=== PATIENT | female | born 1960 | race Caucasian/White ===

== ENCOUNTER → 2016-03-10 | Outpatient (CLI) | payer OTHER ==
[~2016-03-10] MED LIST: ACET650S13 RC; ALPR.25T PO; AMLO2.5T; AMLO5TAB2 GT; AMLO5TAB2 PO; ASPI1TAB; ASPI1TAB PO; ATOR40TA PO; FLUR100T; GBPN300C PO; LEVO75TA57 PO; LISI20TA; LISI40TA PO; LVT.1T; METO-272 PO; METO100T5; OMEG-12 PO; OMEP40CA36 PO; ONDA8TAB6; PANT40TA; PARO20TA57 PO; PEG15DRO4 OS; POLY17PO23 PO; PRAV40TA PO; THYROXINE; TOPI100T2 PO; TRAM-21 PO
--- OUTSIDE RECORDS SUMMARY | 2016-03-10 13:45 | XMS REPORT | Continuity of Care Document ---
Author Author [facility] Organization [facility] Address Unknown Phone Unavailable Care Team Providers Care Shelf Stocker Name Role Phone Valentin Cordoba PCP [phone] Source Comments Some departments are not documenting in the electronic medical record. If you do not see the information that you expected, contact Release of Information in the Health Information Management department at [phone] for further assistance in locating additional records.[facility] Active Allergies and Adverse Reactions Allergen Noted Date Severity Reactions Comments Ambien 07/13/2009 Medium MENTAL STATUS CHANGES Codeine 07/13/2009 Medium VOMITING Morphine 08/03/2009 NAUSEA AND VOMITING Current Medications Prescription Sig. Disp. Refills Start End Date Status Date ACETAMINOPHEN/CAFFEINE Take 2 Tabs by mouth Active (EXCEDRIN PO) Twice Daily. POLYETHYLENE GLYCOL 3350 Take 1 Dose by mouth As Active (MIRALAX PO) Needed. lisinopril (PRINIVIL; Take 20 mg by mouth Twice Active ZESTRIL) 20 mg tablet Daily. paroxetine (PAXIL) 20 mg Take 20 mg by mouth Active tablet Daily. clonidine (CATAPRESS) 0.1 Take 0.1 mg by mouth As Active mg tablet Needed. alprazolam (XANAX) 0.25 Take 0.25 mg by mouth Active mg tablet Every [address],+, Take 40 mg by mouth Active (PROTONIX) 40 mg tablet Daily. fesoterodine,+, XL Take 4 mg by mouth Daily. Active (TOVIAZ) 4 mg Tb24 tablet levothyroxine Take 100 mcg by mouth Active (LEVOTHROID) 100 mcg Daily. tablet petrolatum PF (REFRESH Apply 0.25 Inches to Active P.M.) ophthalmic ointment affected area Every 12 Hours. oxycodone/acetaminophen Take 1-2 Tabs by mouth 60 Tab 0 08/26/19 Active (PERCOCET) 5/325 mg Every 4-6 Hours as needed 10 tablet for Pain. senna/docusate Take 1 Tab by mouth Twice 20 Tab 1 08/26/19 Active (SENOKOT-S) 8.6/50 mg Daily. 10 tablet Active Problems Problem Noted Date Adenoma 08/30/2009 Metastasis to liver (HCC) 07/13/2009 Overview: Ms. Eller is a pleasant 48 year old woman who said to have had on ultrasound (06/09/2008) at the time of her original colectomy, a small hyperechoic lesion in the right lobe measuring 1.6 x 1.6 x 1.[address] done on 11/20/2008, the lesion was reported to have been 1.7 cm in diameter; by 05/26/2009 the lesion had grown to 2.0 cm in diameter. She was treated with FOLFOX 6 and Avastin for three cycles; due to hypertension, she was next treated with XELOX for three cycles, last treatment on 02/28/2009. CEA was 1.1 on 06/27/2009. PET done on 06/21/2009 showed that the metabolic activity of the lesion had increased compared to the study of 03/05/2009. L ast Assessment & Plan: Ms. Eller is a 48 year old woman with a history of a right lobe liver lesion, thought to be metastatic colorectal cancer and treated with preoperative chemotherapy, who on 08/14/2009 underwent an exploratory laparotomy, intraoperative ultrasound, portal lymphadenectomy, open cholecystectomy, resection of a 2 cm hemorrhagic pelvic cyst, partial splenectomy, Oxford's procedure with appendectomy, a 6 cm wedge resection of the right lobe of the liver, and an incisional hernia repair. She had a complicated post-operative stay due to partial small bowel obstruction and a urinary tract infection. Interestingly, all of the resected lesions, even the one in her liver, were benign. Although at the time of surgery, I felt that her malrotation was congenital, old CT scans confirm that the malrotation was a consequence of her right nephrectomy. I have reviewed her PET scans with our main nuclear medicine radiologist and he found a much lower activity of the lesion than what was reported on the scans we were given; but he does not know why an adenoma would uptake the tracer more than normal liver tissue. Since her discharge, she has been feeling very tired, still. She still has abdominal discomfort, when she walks. But she is eating much better and has taste. Malrotation, congenital 07/13/2009 Overview: She states she has alternating diarrhea and constipation that occasionally cause cramps but denies abd pain other than that. She complains of having decreased energy. 2 weeks ago she was hospitalized with acute N/V and hypotension. She recovered with IVF and is unsure of her diagnosis. CEA on that day was 1.1. LFTs were mildly elevated. Report of CT done today: MARKED NARROWING OF THE PROXIMAL THIRD PORTION OF THE DUODENUM WITH ABNORMAL RIGHT-SIDED LOCATION OF THE JEJUNUM. THIS RESULTS IN PARTIAL HIGH-GRADE OBSTRUCTION WHICH IS LIKELY CHRONIC IN NATURE. THIS IS LIKELY MOST LIKELY CONGENITAL DUE TO MALROTATION AND MIDGUT VOLVULUS. Renal cancer (HCC) 06/05/2008 Overview: Her right kidney was removed with a radical resection at the same time of her colonic primary. The lesion was in the lower pole, 5.3 x 4.7 x 5 cm; it was limited to the kidney and was a clear cell renal carcinoma, Raul grade 2-p2T1b. Venous invasion was present. No nodes taken. 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 Eller is a 48 year old woman with a history of hematochezia for four years. She was told by her hot stamp operator that the bleeding was due to hemorrhoids. However, the bleeding worsen and she was evaluated with an abdominal sonogram and CT scan. She was found to have a large right renal mass. She subsequently had a colonoscopy which demonstrated a rectosigmoid dysplastic polyp. She under sigmoidectomy on 06/05/2008. The cancer was adenocarcinoma, low-grade, with lymphatic but not venous or perineural invasion. 22 nodes were removed and 5 were involved with cancer. Social History Tobacco Use Types Packs/Day Years Used Date Never Smoker Alcohol Use Drinks/Week oz/Week Comments No Last Filed Vital Signs Vital Sign Reading Time Taken Blood Pressure 125/89 09/07/2009 10:20 AM CDT Pulse 94 09/07/2009 10:20 AM CDT Temperature 37.4 C (99.4 F) 09/07/2009 10:20 AM CDT Respiratory Rate 20 10/28/2007 2:57 AM CDT Height 1.575 m (5' 2") 09/07/2009 10:20 AM CDT Weight 61.236 kg (135 lb) 05/18/2015 10:02 AM CDT Body Mass Index 24.69 05/18/2015 10:02 AM CDT Oxygen Saturation 97% 09/07/2009 10:20 AM CDT Plan of Care Health Maintenance Due Date Last Done Comments Hepatitis C Screening 1960 Physical (Comprehensive) 1965 Exam Pertussis Vaccine 1969 Tetanus Vaccine 11/16/1975 Cervical Cancer Screening 11/16/1979 Breast Cancer Screening 1998 Colorectal Cancer 2008 Screening Influenza Vaccine 11/01/2015 Results from Last 3 Months Not on file
[2016-03-10 13:53] LABS: BASOPHILS % (AUTO) 0 % (0-10); EOSINOPHILS # (AUTO) 0.1 10^3/uL (0.0-0.3); EOSINOPHILS % (AUTO) 1 % (0-10); LYMPHOCYTES # (AUTO) 2.7 X 10^3 (1.0-4.0); LYMPHOCYTES % (AUTO) 32 % (12-44); MEAN CORPUSCULAR HEMOGLOBIN 32 PG (25-34); MEAN CORPUSCULAR HGB CONC 34 G/DL (32-36); MEAN CORPUSCULAR VOLUME 94 FL (80-99); MEAN PLATELET VOLUME 10.4 FL (7.4-10.4); MONOCYTES # (AUTO) 0.6 X 10^3 (0.0-1.0); MONOCYTES % (AUTO) 7 % (0-12); NEUTROPHILS # (AUTO) 4.9 X 10^3 (1.8-7.8); NEUTROPHILS % (AUTO) 60 % (42-75); PLATELET COUNT 191 10^3/uL (130-400); RED BLOOD COUNT 4.68 10^6/uL (4.35-5.85); RED CELL DISTRIBUTION WIDTH 12.9 % (10.0-14.5); WHITE BLOOD COUNT 8.3 10^3/uL (4.3-11.0)
[2016-03-10 14:16] LABS: ALBUMIN 4.5 G/DL (3.2-4.5); BILIRUBIN,TOTAL 0.6 MG/DL (0.1-1.0); CALCIUM 10.1 MG/DL (8.5-10.1); CREATININE SERUM 1.22 MG/DL (0.60-1.30); POTASSIUM 4.2 MMOL/L (3.6-5.0); TOTAL PROTEIN 6.9 G/DL (6.4-8.2)
[2016-03-10 14:39] LABS: THYROID STIMULATING HORMONE 1.14 UIU/ML (0.35-4.94)
== END ==
LOC: LAB 13:39
PROVIDERS: ATTEND Nurse Practitioner Family
DX: E03.9 Hypothyroidism, unspecified (principal); F41.1 Generalized anxiety disorder; I10 Essential (primary) hypertension; K59.01 Slow transit constipation
CPT/HCPCS: 36415; 80053; 84439; 84443; 85025

== ENCOUNTER → 2016-11-28 | Outpatient (CLI) | payer OTHER ==
[2016-11-28 12:08] LABS: ALBUMIN 4.3 GM/DL (3.2-4.5); BILIRUBIN,TOTAL 0.6 MG/DL (0.1-1.0); CALCIUM 10.3 MG/DL (8.5-10.1); CREATININE SERUM 1.23 MG/DL (0.60-1.30); POTASSIUM 4.8 MMOL/L (3.6-5.0); TOTAL PROTEIN 7.1 GM/DL (6.4-8.2)
== END ==
LOC: LAB 11:36
PROVIDERS: ATTEND Physician Assistant
DX: R07.89 Other chest pain (principal); E78.2 Mixed hyperlipidemia; I10 Essential (primary) hypertension; I47.1 Supraventricular tachycardia
CPT/HCPCS: 36415; 80053; 80061

== ENCOUNTER → 2016-12-12 | Outpatient (CLI) | payer OTHER ==
--- NOTE | 2016-12-15 10:33 | Diagnostic Imaging Report ---
Bilateral screening mammogram 2D views with tomosynthesis The current study was also evaluated with a Computer Aided Detection (CAD) system. INDICATION: Screening. No current complaints stated on the questionnaire. COMPARISON: 09/22/14 FINDINGS: The breasts are composed of heterogeneously dense parenchyma which may decrease mammographic sensitivity. There are benign-appearing calcifications seen. Allowing for technique and positional differences, no suspicious change is seen. IMPRESSION: Dense breasts with no definite change. ACR BI-RADS Category 2: Benign findings. Result letter will be mailed to the patient. Note: At least 10% of breast cancer is not imaged by mammography. Dictated by: Dictated on workstation # [id number]
== END ==
LOC: RAD 13:19
PROVIDERS: ATTEND Family Medicine
DX: Z12.31 Encounter for screening mammogram for malignant neoplasm of breast (principal)
CPT/HCPCS: 77067

== ENCOUNTER → 2017-08-17 | Outpatient (CLI) | payer OTHER ==
[2017-08-17 12:55] LABS: BASOPHILS % (AUTO) 0 % (0-10); EOSINOPHILS # (AUTO) 0.1 10^3/uL (0.0-0.3); EOSINOPHILS % (AUTO) 1 % (0-10); HEMATOCRIT 40 % (35-52); HEMOGLOBIN 14.2 G/DL (11.5-16.0); LYMPHOCYTES # (AUTO) 2.3 X 10^3 (1.0-4.0); LYMPHOCYTES % (AUTO) 31 % (12-44); MEAN CORPUSCULAR HEMOGLOBIN 33 PG (25-34); MEAN CORPUSCULAR HGB CONC 35 G/DL (32-36); MEAN CORPUSCULAR VOLUME 95 FL (80-99); MEAN PLATELET VOLUME 10.1 FL (7.4-10.4); MONOCYTES # (AUTO) 0.6 X 10^3 (0.0-1.0); MONOCYTES % (AUTO) 7 % (0-12); NEUTROPHILS # (AUTO) 4.5 X 10^3 (1.8-7.8); NEUTROPHILS % (AUTO) 60 % (42-75); PLATELET COUNT 197 10^3/uL (130-400); RED BLOOD COUNT 4.26 10^6/uL (4.35-5.85); RED CELL DISTRIBUTION WIDTH 12.8 % (10.0-14.5); WHITE BLOOD COUNT 7.5 10^3/uL (4.3-11.0)
[2017-08-17 13:22] LABS: ALBUMIN 4.3 GM/DL (3.2-4.5); BILIRUBIN,TOTAL 0.7 MG/DL (0.1-1.0); CALCIUM 10.1 MG/DL (8.5-10.1); CREATININE SERUM 1.4 MG/DL (0.60-1.30); POTASSIUM 4.3 MMOL/L (3.6-5.0); TOTAL PROTEIN 6.9 GM/DL (6.4-8.2)
== END ==
LOC: ONC 12:41
PROVIDERS: ATTEND Internal Medicine Hematology & Oncology
DX: Z08 Encounter for follow-up examination after completed treatment for malignant neoplasm (principal); Z85.038 Personal history of other malignant neoplasm of large intestine; Z85.528 Personal history of other malignant neoplasm of kidney; I12.9 Hypertensive chronic kidney disease with stage 1 through stage 4 chronic kidney disease, or unspecified chronic kidney disease; N18.3 Chronic kidney disease, stage 3 (moderate); K59.00 Constipation, unspecified; R19.7 Diarrhea, unspecified; Z90.5 Acquired absence of kidney; Z92.21 Personal history of antineoplastic chemotherapy; Z79.899 Other long term (current) drug therapy
CPT/HCPCS: 36415; 80053; 82378; 83615; 85025; 99213

== ENCOUNTER → 2017-09-07 | Outpatient (CLI) | payer OTHER ==
[~2017-09-07] MED LIST changes: +ALPR0.254 PO; +AMLO10TA2 PO; +ASPI-992 PO; +EZET10TA5 PO; +FLUO20TA28 PO; +GABA-488 PO; +L.AC1CAP6 PO; +LEVO75TA6 PO; +METO-370 PO; +PANT40TA3 PO; +ROSU10TA27 PO
--- NOTE | 2017-09-07 13:03 | Diagnostic Imaging Report ---
PROCEDURE: CT abdomen and pelvis without contrast. TECHNIQUE: Multiple contiguous axial images were obtained through the abdomen and pelvis without the use of intravenous contrast. INDICATION: Renal cell carcinoma, status post right nephrectomy. COMPARISON: Correlation is made with prior CT from 02/16/2013. FINDINGS: Lung bases are clear of acute infiltrates. There is some dependent atelectasis in the right lower lobe. The liver is unremarkable. Gallbladder appears to be surgically absent. Pancreas and spleen appear to be stable. No adrenal mass is detected. Right kidney is surgically absent. Small bowel loops are identified in the right renal fossa. Left kidney is unremarkable. No calculi or hydronephrosis is seen. The aorta is non-aneurysmal. No definite central retroperitoneal or mesenteric lymphadenopathy is seen. Small and large bowel loops are normal caliber. There is no ascites. Bladder is unremarkable. Postsurgical changes of rectum are noted. Bony structures are without osteolytic or blastic lesions. IMPRESSION: Status post right nephrectomy. There is no evidence of recurrent or residual renal mass. There are no findings to suggest metastatic disease. Dictated by: Dictated on workstation # [id number]
== END ==
LOC: RAD 11:46
PROVIDERS: ATTEND Internal Medicine Hematology & Oncology
DX: C18.7 Malignant neoplasm of sigmoid colon (principal); C64.1 Malignant neoplasm of right kidney, except renal pelvis; Z90.5 Acquired absence of kidney
CPT/HCPCS: 74176

== ENCOUNTER 2017-09-16 06:05 | Outpatient (CLI) | payer OTHER ==
[~2017-09-16] VITALS: Ht 157.5 cm; Wt 61.2 kg
[~2017-09-16 06:05] MED LIST changes: -ALPR0.254 PO; -AMLO10TA2 PO; -ASPI-992 PO; -EZET10TA5 PO; -FLUO20TA28 PO; -GABA-488 PO; -L.AC1CAP6 PO; -LEVO75TA6 PO; -METO-370 PO; -PANT40TA3 PO; -ROSU10TA27 PO
[2017-09-16] MEDS ORDERED: EZET10TA5 PO (13:51)
[2017-09-16] MEDS ORDERED: LEVO75TA6 PO (14:07)
[2017-09-16] MEDS ORDERED: ASPI-992 PO (14:07)
[2017-09-16] MEDS ORDERED: AMLO10TA2 PO (14:07)
[2017-09-16] MEDS ORDERED: L.AC1CAP6 PO (14:07)
[2017-09-16] MEDS ORDERED: METO-370 PO (14:07)
[2017-09-16] MEDS ORDERED: GABA-488 PO (14:07)
[2017-09-16] MEDS ORDERED: ALPR0.254 PO (14:07)
[2017-09-16] MEDS ORDERED: LISI40TA PO (14:07)
[2017-09-16] MEDS ORDERED: FLUO20TA28 PO (14:07)
[2017-09-16] MEDS ORDERED: ROSU10TA27 PO (14:07)
[2017-09-16] MEDS ORDERED: PANT40TA3 PO (14:07)
== END 2017-09-16 14:12 ==
LOC: PREOP 06:05
PROVIDERS: ATTEND Surgery
DX: Z01.818 Encounter for other preprocedural examination (principal); R19.7 Diarrhea, unspecified; K59.00 Constipation, unspecified

== ENCOUNTER 2017-09-22 07:29 | Day surgery (SDC) | payer OTHER ==
[~2017-09-22] VITALS: Ht 157.5 cm; Wt 61.2 kg
[~2017-09-22 07:29] MED LIST changes: +ALPR0.254 PO; +AMLO10TA2 PO; +ASPI-992 PO; +EZET10TA5 PO; +FLUO20TA28 PO; +GABA-488 PO; +L.AC1CAP6 PO; +LEVO75TA6 PO; +METO-370 PO; +PANT40TA3 PO; +ROSU10TA27 PO
--- OUTSIDE RECORDS SUMMARY | 2017-09-22 07:32 | XMS REPORT | Clinical Summary ---
Author Author [facility] Organization [facility] Address Unknown Phone Unavailable Care Team Providers Care Road Mixer Operator Name Role Phone Talha Cordoba MD PCP Haider Lewis MD Unavailable Herbert Merrill MD Unavailable Kayleigh Brooks Unavailable Unavailable Sandra Gan MD Unavailable Unavailable Yash Ballesteros MD Unavailable Source Comments Some departments are not documenting in the electronic medical record. If you do not see the information that you expected, contact Release of Information in the Health Information Management department at [phone] for further assistance in locating additional records.[facility] Allergies Active Allergy Reactions Severity Noted Date Comments Zolpidem MENTAL STATUS CHANGES Medium 07/13/2009 Codeine VOMITING Medium 07/13/2009 Morphine NAUSEA AND VOMITING 08/03/2009 Current Medications Prescription Sig. Disp. Refills Start [...] Active mg tablet Every [address]+, Take 40 mg by mouth Active (PROTONIX) [...] 2 cm hemorrhagic pelvic cyst, partial splenectomy, Lansford's procedure with appendectomy, a 6 cm wedge [...] four years. She was told by her bullard machine operator that the bleeding was due to [...] removed and 5 were involved with cancer. Family History Medical History Relation Name Comments Cancer Father renal Hypertension Father Other Father bleeding tendency Cancer Maternal Aunt ovarian Cancer Maternal colon cancer Grandfather Cancer Mother ovarian Heart Disease Mother Cancer Paternal Skin cancers. Uncle Stroke Grandfatrher Relation Name Status Comments Father Cancer, unknown type. (Age 62) Maternal Aunt Maternal Grandfather Mother Heart disease. (Age 72) Paternal Uncle Skin cancers. (Age 80) Social History Tobacco Use Types Packs/Day Years Used Date Never Smoker Alcohol Use Drinks/Week oz/Week Comments No Sex Assigned at Date Recorded Not on file Last Filed Vital Signs Vital Sign Reading Time Taken Blood Pressure 125/89 09/07/2009 10:20 AM CDT Pulse 94 09/07/2009 10:20 AM CDT Temperature 37.4 C (99.4 F) 09/07/2009 10:20 AM CDT Respiratory Rate 20 10/28/2007 2:57 AM CDT Oxygen Saturation 97% 09/07/2009 10:20 AM CDT Inhaled Oxygen - - Concentration Weight 61.2 kg (135 lb) 05/18/2015 10:02 AM CDT Height 157.5 cm (5' 2") 09/07/2009 10:20 AM CDT Body Mass Index 24.69 05/18/2015 10:02 AM CDT Plan of Treatment Health Maintenance Due Date Last Done Comments HEPATITIS C SCREENING 1960 PHYSICAL (COMPREHENSIVE) 1965 EXAM PERTUSSIS VACCINE 1969 HIV SCREENING 1973 TETANUS VACCINE 11/16/1975 CERVICAL CANCER SCREENING 1988 BREAST CANCER SCREENING 1998 COLORECTAL CANCER 2008 SCREENING SHINGLES RECOMBINANT 2008 VACCINE (1 of 2) INFLUENZA VACCINE 11/30/2017 Results Not on filefrom Last 3 Months
[2017-09-22] MEDS ORDERED: LACTATED RINGERS 1,000 ML IV ONE (07:37)
[2017-09-22 07:40] VITALS: BP 94/76
[2017-09-22] MEDS ORDERED: LACTATED RINGERS 0 ML IV ONE (07:51)
[2017-09-22] MEDS ORDERED: LACTATED RINGERS 1,000 ML IV SCH (08:00)
[2017-09-22] MEDS ORDERED: LACTATED RINGERS 1,000 ML IV PRN (08:00)
--- NOTE | 2017-09-22 08:27 | Progress Note-Pre Operative ---
Pre-Operative Progress Note H&P Reviewed The H&P was reviewed, patient examined and no changes noted. Date Seen by Provider: Sep 22, 2017 Time Seen by Provider: : Date H&P Reviewed: Sep 22, 2017 Time H&P Reviewed: : Pre-Operative Diagnosis: change in bowel habits, history sigmoid colon cancer BENTLEY BERMUDEZ DO Sep 22, 2017 08:27
[2017-09-22] MEDS ORDERED: PROPOFOL INJECTION 50 ML IV ONE (08:59)
[2017-09-22] MEDS ORDERED: MIDAZOLAM 2 MG/2 ML (VERSED) VIAL ONE (08:59)
[2017-09-22 10:00] VITALS: BP 93/59
--- NOTE | 2017-09-22 10:05 | Discharge Inst-Simple/Standard ---
Discharge Inst-Standard Patient Instructions/Follow Up Plan of Care/Instructions/FU: 2 weeks Nicolasa Activity as Tolerated: Yes Discharge Diet: Regular Diet BENTLEY BERMUDEZ DO Sep 22, 2017 10:05
--- NOTE | 2017-09-22 10:09 | Progress Note-Post Operative ---
Post-Operative Progess Note Surgeon (s)/Primary Mill Roller (s) Surgeon BENTLEY BERMUDEZ DO Primary Mill Roller: na Pre-Operative Diagnosis change in bowel habits, history sigmoid colon cancer Post-Operative Diagnosis colon polyps Procedure & Operative Findings Date of Procedure 09/22/17 Procedure Performed/Findings colonoscopy with hot bx polypectomy x 3 and snare polypectomy x 1 Anesthesia Type per benefits manager Estimated Blood Loss Estimated blood loss (mL): scant Specimens/Packing Specimens Removed cecal polyp x 2 ascending colon x 1 descending colon x 1 BENTLEY BERMUDEZ DO Sep 22, 2017 10:09
[2017-09-22 10:30] VITALS: BP 104/74
[2017-09-22 10:35] VITALS: BP 104/74
--- NOTE | 2017-09-22 10:49 | Anesthesia-General Post-Op ---
MAC Patient Condition Mental Status/LOC: Same as Preop Cardiovascular: Satisfactory Nausea/Vomiting: Absent Respiratory: Satisfactory Pain: Controlled Complications: Absent Post Op Complications Complications None Follow Up Care/Instructions Patient Instructions None needed. Anesthesiology Discharge Order Discharge Order Patient is doing well, no complaints, stable vital signs, no apparent adverse anesthesia problems. No complications reported per nursing. DREW DAVALOS CRNA Sep 22, 2017 10:49
--- NOTE | 2017-09-22 14:31 | OPERATIVE REPORT ---
DATE OF SERVICE: 09/22/2017 PREOPERATIVE DIAGNOSES: Change in bowel habits, history of sigmoid colon cancer. POSTOPERATIVE DIAGNOSIS: Colon polyps, two in the cecum, one in the ascending and one in the descending colon. PROCEDURE: Colonoscopy with hot biopsy polypectomy x3 and snare polypectomy x1. SURGEON: Bentley Baldwin DO. ANESTHESIA: Per CATERING ATTENDANT. ESTIMATED BLOOD LOSS: Scant. COMPLICATIONS: None. INDICATIONS: The patient is a 56-year-old female with history of colon cancer. She understands risks and benefits of procedure and wished to proceed with procedure. Consent was signed in the chart. DESCRIPTION OF PROCEDURE: The patient was taken to the endoscopy suite, placed in left lower recumbent position. Timeout was performed. Scope was inserted in the rectum. Rectal exam was performed. There were no palpable polyps, mass or ulcerations. The scope was inserted in the rectum and advanced all the way to the cecum with minimal difficulty. There were two small polyps in the cecum, which hot biopsy polypectomies were performed. Scope was continuously retracted back, slightly larger polyp in the ascending colon, which snare polypectomy was performed. Specimen was obtained for pathology. Scope was continued slowly retracted back. There were no polyps, mass or ulcerations within the transverse colon. Within the descending colon, a small polyp was present, which hot biopsy polypectomy was performed. Scope was continued to be slowly retracted back until completely removed back into the rectum where it was also retroflexed noting no other pathology. Scope was returned to its normal position, slowly withdrawn until completely removed. The patient tolerated the procedure well without complication. She was taken to the recovery room in stable condition. RECOMMENDATIONS: Due to the number of polyps and the slightly larger polyp in the ascending colon, we would recommend repeat colonoscopy in three years. If she has any problems prior to that, she should be reevaluated at that time. Job ID: [id number] DocumentID: [id number] Dictated Date: 09/22/2017 10:08:36 Wood Patternmaker Apprentice Date: 09/22/2017 14:31:30 Dictated By: BENTLEY BALDWIN DO
== END 2017-09-22 10:35 | disposition home or self-care (01) ==
LOC: ENDO 07:29
PROVIDERS: ATTEND Surgery
DX: D12.0 Benign neoplasm of cecum (principal); D12.2 Benign neoplasm of ascending colon; D12.4 Benign neoplasm of descending colon; R19.4 Change in bowel habit; Z85.038 Personal history of other malignant neoplasm of large intestine; I10 Essential (primary) hypertension; Z79.82 Long term (current) use of aspirin

== ENCOUNTER → 2018-03-25 | Outpatient (CLI) | payer OTHER ==
[~2018-03-25] MED LIST changes: -AMLO10TA2 PO; +AMLO10TA7 PO
--- NOTE | 2018-03-25 19:52 | Diagnostic Imaging Report ---
INDICATION: Cough. TIME OF EXAM: 2:59 PM Comparison is made with prior exam from 05/26/2009. FINDINGS: The heart size is normal. The pulmonary vascularity is unremarkable. The lungs are clear. No infiltrate, effusion or pneumothorax is detected. IMPRESSION: No acute cardiopulmonary process is detected. Dictated by: Dictated on workstation # [id number]
== END ==
LOC: RAD 14:45
PROVIDERS: ATTEND Family Medicine
DX: R05 Cough (principal)
CPT/HCPCS: 71046

== ENCOUNTER → 2018-04-26 | Outpatient (CLI) | payer OTHER ==
[~2018-04-26] MED LIST changes: +LOSA50TA63 PO; +VIT1CAPS9 PO
[2018-04-26 11:48] LABS: ALBUMIN 4.2 GM/DL (3.2-4.5); BILIRUBIN,TOTAL 0.5 MG/DL (0.1-1.0); CALCIUM 10.2 MG/DL (8.5-10.1); CREATININE SERUM 1.12 MG/DL (0.60-1.30); POTASSIUM 4.4 MMOL/L (3.6-5.0); TOTAL PROTEIN 6.7 GM/DL (6.4-8.2)
== END ==
LOC: LAB 11:07
PROVIDERS: ATTEND Internal Medicine Cardiovascular Disease
DX: R07.9 Chest pain, unspecified (principal); I12.9 Hypertensive chronic kidney disease with stage 1 through stage 4 chronic kidney disease, or unspecified chronic kidney disease; N18.3 Chronic kidney disease, stage 3 (moderate); E78.5 Hyperlipidemia, unspecified; I47.1 Supraventricular tachycardia
CPT/HCPCS: 36415; 80053; 80061

== ENCOUNTER 2018-04-27 05:35 | Outpatient (CLI) | payer OTHER ==
[~2018-04-27] VITALS: Ht 157.5 cm; Wt 61.2 kg
[~2018-04-27 05:35] MED LIST changes: -LOSA50TA63 PO; -VIT1CAPS9 PO
[2018-04-27] MEDS ORDERED: LOSA50TA63 PO (10:45)
[2018-04-27] MEDS ORDERED: VIT1CAPS9 PO (10:46)
== END 2018-04-27 10:48 ==
LOC: PREOP 05:35
PROVIDERS: ATTEND Surgery
DX: Z01.818 Encounter for other preprocedural examination (principal)

== ENCOUNTER 2018-05-04 10:49 | Day surgery (SDC) | payer OTHER ==
[~2018-05-04] VITALS: Ht 157.5 cm; Wt 61.2 kg
[~2018-05-04 10:49] MED LIST changes: +LOSA50TA63 PO; +OCUVITE SOFTGE1 EACH PO
[2018-05-04] MEDS ORDERED: LACTATED RINGERS 1,000 ML IV STA (10:59)
[2018-05-04] MEDS ORDERED: LACTATED RINGERS 1,000 ML IV ONE (11:01)
[2018-05-04 11:15] VITALS: BP 139/96
--- NOTE | 2018-05-04 11:48 | Progress Note-Pre Operative ---
Pre-Operative Progress Note H&P Reviewed The H&P was reviewed, patient examined and no changes noted. Date Seen by Provider: May 04, 2018 Time Seen by Provider: 11:48 Date H&P Reviewed: May 04, 2018 Time H&P Reviewed: 11:48 Pre-Operative Diagnosis: history of polyps BENTLEY BERMUDEZ DO May 04, 2018 11:48
[2018-05-04] MEDS ORDERED: PROPOFOL INJECTION 50 ML IV ONE (12:04)
[2018-05-04] MEDS ORDERED: MIDAZOLAM 5 MG/5 ML (VERSED) VIAL ONE (12:04)
--- NOTE | 2018-05-04 12:31 | Progress Note-Post Operative ---
Post-Operative Progess Note Surgeon (s)/Private Sector Executive (s) Surgeon BENTLEY BERMUDEZ DO Private Sector Executive: na Pre-Operative Diagnosis history of polyps Post-Operative Diagnosis ascending colon polyp Procedure & Operative Findings Date of Procedure 05/04/18 Procedure Performed/Findings colonoscopy c hot bx polypectomy Anesthesia Type per enrollment nurse Estimated Blood Loss Estimated blood loss (mL): none Specimens/Packing Specimens Removed colon polyp ascending BENTLEY BERMUDEZ DO May 04, 2018 12:31
--- NOTE | 2018-05-04 12:32 | Discharge Inst-Simple/Standard ---
Discharge Inst-Standard Patient Instructions/Follow Up Plan of Care/Instructions/FU: 2 weeks Nicolasa Activity as Tolerated: Yes Discharge Diet: Regular Diet BENTLEY BERMUDEZ DO May 04, 2018 12:32
[2018-05-04 12:55] VITALS: BP 127/78
[2018-05-04 13:18] VITALS: BP 129/89
[2018-05-04 13:33] VITALS: BP 129/89
--- NOTE | 2018-05-04 14:25 | Anesthesia-General Post-Op ---
MAC Patient Condition Mental Status/LOC: Same as Preop Cardiovascular: Satisfactory Nausea/Vomiting: Absent Respiratory: Satisfactory Pain: Controlled Complications: Absent Post Op Complications Complications None Follow Up Care/Instructions Patient Instructions None needed. Anesthesiology Discharge Order Discharge Order Patient is doing well, no complaints, stable vital signs, no apparent adverse anesthesia problems. No complications reported per nursing. SOLA CARRIZALES CRNA May 04, 2018 14:25
--- NOTE | 2018-05-04 14:50 | OPERATIVE REPORT ---
DATE OF SERVICE: 05/04/2018 PREOPERATIVE DIAGNOSIS: History of polyps. POSTOPERATIVE DIAGNOSIS: Ascending colon polyp. PROCEDURE: Colonoscopy with hot biopsy polypectomy. SURGEON: Bentley Baldwin DO. ANESTHESIA: Per CASING COOKER. ESTIMATED BLOOD LOSS: None. COMPLICATIONS: None. INDICATIONS: The patient is a 57-year-old female with history of colon polyps. She understands the risks and benefits of the procedure. She wishes to proceed. Consent was signed in the chart. PROCEDURE: The patient was taken to the endoscopy suite and placed in the left lateral recumbent position. Timeout was performed. Digital rectal exam was performed. There were no palpable polyps, masses or ulcerations. Scope was inserted in the rectum and advanced all the way to the cecum with minimal difficulty. Prep was adequate. Scope was then slowly retracted back. There were no polyps, masses or ulcerations within the cecum. Within the ascending colon, there was a polyp present, which hot biopsy polypectomy was performed. Scope was continuously retracted back. There were no other polyps or masses or ulcerations within the remainder of the ascending colon, transverse, descending and sigmoid colon. Once in the rectum, scope was retroflexed noting no other pathology. Scope was returned to its normal position, slowly withdrawn until completely removed. The patient tolerated the procedure well without any complications. She was taken to the recovery room in stable condition. RECOMMENDATIONS: The patient will follow up in the office in 2 weeks to discuss pathology results. I would recommend repeat colonoscopy in three years for reevaluation. If she has any issues before that she should be seen at that time. Job ID: [id number] DocumentID: [id number] Dictated Date: 05/04/2018 12:34:45 Software Development Engineer Date: 05/04/2018 14:49:45 Dictated By: BENTLEY BALDWIN DO
== END 2018-05-04 13:35 | disposition home or self-care (01) ==
LOC: ENDO 10:49
PROVIDERS: ATTEND Surgery
DX: Z12.11 Encounter for screening for malignant neoplasm of colon (principal); D12.2 Benign neoplasm of ascending colon; K58.1 Irritable bowel syndrome with constipation; I12.9 Hypertensive chronic kidney disease with stage 1 through stage 4 chronic kidney disease, or unspecified chronic kidney disease; N18.3 Chronic kidney disease, stage 3 (moderate); E03.9 Hypothyroidism, unspecified; E78.5 Hyperlipidemia, unspecified; Z85.038 Personal history of other malignant neoplasm of large intestine; Z85.528 Personal history of other malignant neoplasm of kidney; Z86.010 Personal history of colon polyps; Z79.899 Other long term (current) drug therapy

== ENCOUNTER → 2018-09-09 | Outpatient (CLI) | payer OTHER | LOC: ONC 01:07 | PROVIDERS: ATTEND Internal Medicine Hematology & Oncology | DX: Z08 Encounter for follow-up examination after completed treatment for malignant neoplasm (principal); Z85.038 Personal history of other malignant neoplasm of large intestine; Z85.528 Personal history of other malignant neoplasm of kidney; I12.9 Hypertensive chronic kidney disease with stage 1 through stage 4 chronic kidney disease, or unspecified chronic kidney disease; N18.3 Chronic kidney disease, stage 3 (moderate); K59.00 Constipation, unspecified; R19.7 Diarrhea, unspecified; R53.83 Other fatigue; Z90.5 Acquired absence of kidney; Z92.21 Personal history of antineoplastic chemotherapy; Z79.899 Other long term (current) drug therapy | CPT/HCPCS: 84443; 99213 ==

== ENCOUNTER → 2018-11-26 | Outpatient (CLI) | payer OTHER ==
[~2018-11-26] MED LIST changes: -ROSU10TA27 PO; +ROSU10TA28 PO
== END ==
LOC: CARD 12:52
PROVIDERS: ATTEND Physician Assistant
DX: I65.29 Occlusion and stenosis of unspecified carotid artery (principal); I10 Essential (primary) hypertension; E78.5 Hyperlipidemia, unspecified; R51 Headache; I34.0 Nonrheumatic mitral (valve) insufficiency
CPT/HCPCS: 93306

== ENCOUNTER 2018-12-02 13:21 | Outpatient (RCR) | payer OTHER | END 2019-03-02 | disposition home or self-care (01) | LOC: ONC 13:21 | PROVIDERS: ATTEND Internal Medicine Hematology & Oncology | DX: Z08 Encounter for follow-up examination after completed treatment for malignant neoplasm (principal); Z85.038 Personal history of other malignant neoplasm of large intestine; Z85.528 Personal history of other malignant neoplasm of kidney; I12.9 Hypertensive chronic kidney disease with stage 1 through stage 4 chronic kidney disease, or unspecified chronic kidney disease; N18.3 Chronic kidney disease, stage 3 (moderate); Z90.5 Acquired absence of kidney; Z92.21 Personal history of antineoplastic chemotherapy; Z79.899 Other long term (current) drug therapy | CPT/HCPCS: 99213 ==

== ENCOUNTER → 2018-12-02 | Outpatient (CLI) | payer OTHER ==
--- NOTE | 2018-12-02 17:54 | Diagnostic Imaging Report ---
EXAMINATION: Digital mammogram bilateral screening. The current study was also evaluated with a Computer Aided Detection (CAD) system. 3-D tomosynthesis was also performed and reviewed. INDICATION: Screening. This study was compared to the prior exams of 12/12/2016 and 09/22/2014. At this time, there are no current complaints. FINDINGS: The fibroglandular tissue in both breasts is heterogeneously dense. This does limit the sensitivity of this exam. Overall, there does not appear to have been any significant change when compared to the prior study. No primary or secondary sign of malignancy is noted. 3D tomographic images fail to show any sign of malignancy. IMPRESSION: There is no radiographic evidence for malignancy. ACR BI-RADS Category 1: Negative. Result letter will be mailed to the patient. Note: At least 10% of breast cancer is not imaged by mammography. Dictated by: Dictated on workstation # [id number]
== END ==
LOC: RAD 10:48
PROVIDERS: ATTEND Nurse Practitioner Adult Health
DX: Z12.31 Encounter for screening mammogram for malignant neoplasm of breast (principal)
CPT/HCPCS: 77067

== ENCOUNTER → 2019-09-14 | Outpatient (CLI) | payer OTHER ==
[~2019-09-14] MED LIST changes: +EZET10TA17 PO; -EZET10TA5 PO; -METO-370 PO; +METO50TA7 PO
[2019-09-14 11:57] LABS: ALBUMIN 4.4 GM/DL (3.2-4.5); BILIRUBIN,TOTAL 0.7 MG/DL (0.1-1.0); CALCIUM 10.4 MG/DL (8.5-10.1); CREATININE SERUM 1.06 MG/DL (0.60-1.30); POTASSIUM 4.6 MMOL/L (3.6-5.0); TOTAL PROTEIN 6.8 GM/DL (6.4-8.2)
== END ==
LOC: LAB 11:14
PROVIDERS: ATTEND Physician Assistant
DX: I65.29 Occlusion and stenosis of unspecified carotid artery (principal); I10 Essential (primary) hypertension; E78.5 Hyperlipidemia, unspecified; E03.9 Hypothyroidism, unspecified
CPT/HCPCS: 36415; 80053; 80061

== ENCOUNTER → 2019-09-14 | Outpatient (CLI) | payer OTHER ==
[2019-09-14 14:30] LABS: BASOPHILS % (AUTO) 0 % (0-10); EOSINOPHILS # (AUTO) 0.1 10^3/uL (0.0-0.3); EOSINOPHILS % (AUTO) 1 % (0-10); HEMATOCRIT 44 % (35-52); HEMOGLOBIN 15.1 G/DL (11.5-16.0); LYMPHOCYTES # (AUTO) 1.9 X 10^3 (1.0-4.0); LYMPHOCYTES % (AUTO) 27 % (12-44); MEAN CORPUSCULAR HEMOGLOBIN 32 PG (25-34); MEAN CORPUSCULAR HGB CONC 34 G/DL (32-36); MEAN CORPUSCULAR VOLUME 94 FL (80-99); MEAN PLATELET VOLUME 9.9 FL (7.4-10.4); MONOCYTES # (AUTO) 0.5 X 10^3 (0.0-1.0); MONOCYTES % (AUTO) 8 % (0-12); NEUTROPHILS # (AUTO) 4.6 X 10^3 (1.8-7.8); NEUTROPHILS % (AUTO) 64 % (42-75); PLATELET COUNT 188 10^3/uL (130-400); RED CELL DISTRIBUTION WIDTH 12.7 % (10.0-14.5); WHITE BLOOD COUNT 7.1 10^3/uL (4.3-11.0)
[2019-09-14 14:43] LABS: ALBUMIN 4.3 GM/DL (3.2-4.5); POTASSIUM 4.1 MMOL/L (3.6-5.0)
[2019-09-14 14:44] LABS: CALCIUM 10.1 MG/DL (8.5-10.1)
[2019-09-14 14:46] LABS: TOTAL PROTEIN 6.8 GM/DL (6.4-8.2)
[2019-09-14 14:47] LABS: BILIRUBIN,TOTAL 0.7 MG/DL (0.1-1.0)
[2019-09-14 14:49] LABS: CREATININE SERUM 1.22 MG/DL (0.60-1.30)
[2019-09-14 15:13] LABS: FREE T4 (FREE THYROXINE) 1.03 NG/DL (0.70-1.48)
== END ==
LOC: LAB 14:18
PROVIDERS: ATTEND Family Medicine
DX: E03.9 Hypothyroidism, unspecified (principal); R63.5 Abnormal weight gain
CPT/HCPCS: 36415; 80053; 84439; 84443; 84480; 85025

== ENCOUNTER → 2020-06-21 | Outpatient (CLI) | payer OTHER ==
[~2020-06-21] MED LIST changes: -ALPR0.254 PO; +AMLO-251 PO; -AMLO10TA7 PO; +LISI40TA9 PO; -PANT40TA3 PO; +PANT40TA52 PO
[2020-06-21 10:22] LABS: BASOPHILS % (AUTO) 0 % (0-10); EOSINOPHILS # (AUTO) 0.3 10^3/uL (0.0-0.3); EOSINOPHILS % (AUTO) 5 % (0-10); HEMATOCRIT 44 % (35-52); HEMOGLOBIN 14.5 g/dL (11.5-16.0); LYMPHOCYTES # (AUTO) 1.5 10^3/uL (1.0-4.0); LYMPHOCYTES % (AUTO) 26 % (12-44); MEAN CORPUSCULAR HEMOGLOBIN 32 pg (25-34); MEAN CORPUSCULAR HGB CONC 33 g/dL (32-36); MEAN CORPUSCULAR VOLUME 97 fL (80-99); MEAN PLATELET VOLUME 9.6 fL (9.0-12.2); MONOCYTES # (AUTO) 0.4 10^3/uL (0.0-1.0); MONOCYTES % (AUTO) 7 % (0-12); NEUTROPHILS # (AUTO) 3.6 10^3/uL (1.8-7.8); NEUTROPHILS % (AUTO) 61 % (42-75); PLATELET COUNT 174 10^3/uL (130-400); WHITE BLOOD COUNT 5.9 10^3/uL (4.3-11.0)
[2020-06-21 10:50] LABS: ALBUMIN 4.4 GM/DL (3.2-4.5); BILIRUBIN,TOTAL 0.6 MG/DL (0.1-1.0); CREATININE SERUM 0.98 MG/DL (0.60-1.30); POTASSIUM 4.3 MMOL/L (3.6-5.0); TOTAL PROTEIN 7.1 GM/DL (6.4-8.2)
[2020-06-21 11:14] LABS: FREE T4 (FREE THYROXINE) 0.91 NG/DL (0.70-1.48)
== END ==
LOC: LAB 09:51
PROVIDERS: ATTEND Family Medicine
DX: E03.9 Hypothyroidism, unspecified (principal); I10 Essential (primary) hypertension; E78.2 Mixed hyperlipidemia; Z79.899 Other long term (current) drug therapy
CPT/HCPCS: 36415; 80053; 80061; 84439; 84443; 85025

== ENCOUNTER → 2020-11-19 | Outpatient (CLI) | payer OTHER ==
[~2020-11-19] VITALS: Ht 157 cm; Wt 61.0 kg
[~2020-11-19] MED LIST changes: +CATHETER FLUSH 10 ML SYR IV PRN; +REGADENOSON 0.4 MG/5 ML SYR (LEXISCAN) IV ONE
[2020-11-19 09:14] VITALS: BP 141/99
--- NOTE | 2020-11-19 12:14 | Cardiology Stress Test Report ---
Stress Test Report Date of Procedure/Referring: Date of Procedure: Nov 19, 2020 Chelsie Weir Admitting Physician Erika Breen MD Indications: HTN Baseline Heart Rate: 62 Baseline Blood Pressure: Blood Pressure Systolic: 141 Blood Pressure Diastolic: 99 Baseline Vitals Vital Signs Date Time Temp Pulse Resp B/P (MAP) Pulse Ox O2 Delivery O2 Flow Rate FiO2 11/19/20 09:14 92 17 141/99 (113) 98 Room Air Baseline EKG: Baseline EKG: NSR Summary After explaining the procedure to the patient, she signed a consent and then brought to the stress nuclear laboratory. Patient received 0.4 mg Lexiscan for stress test, ECG, heart rate and blood pressure were monitored continuously. Resting and stress dose of radio tracer were injected, imaging was acquired and reviewed in short axis, horizontal long axis and vertical long axis views. TID: 1.03 SSS: 5 SDS: 4 EF: 85 1. Patient tolerated Lexiscan well 2. Breast attenuation with mild decrease uptake involving the mid to apical anterolateral and inferolateral wall with mild reversibility, probably due to the breast attenuation, there is no significant ischemia or infarction on SPECT images 3. Normal left ventricular size, ejection fraction 85% ROYA HASSAN MD Nov 19, 2020 12:14
== END ==
LOC: CARD 07:30
PROVIDERS: ATTEND Physician Assistant
DX: I10 Essential (primary) hypertension (principal)
CPT/HCPCS: 78452; 93017; A9502

== ENCOUNTER 2021-05-23 06:30 | Outpatient (CLI) | payer OTHER ==
[~2021-05-23] VITALS: Ht 157 cm; Wt 62.6 kg
[~2021-05-23 06:30] MED LIST changes: -CATHETER FLUSH 10 ML SYR IV PRN; -REGADENOSON 0.4 MG/5 ML SYR (LEXISCAN) IV ONE
[2021-05-24] MEDS ORDERED: MINE15DR4 OP (12:17)
== END 2021-05-24 15:46 | disposition home or self-care (01) ==
LOC: PREOP 06:30
PROVIDERS: ATTEND Surgery
DX: Z01.812 Encounter for preprocedural laboratory examination (principal); Z12.11 Encounter for screening for malignant neoplasm of colon; Z85.038 Personal history of other malignant neoplasm of large intestine

== ENCOUNTER 2021-06-04 07:37 | Day surgery (SDC) | payer OTHER ==
[~2021-06-04] VITALS: Ht 157.5 cm; Wt 62.6 kg
[~2021-06-04 07:37] MED LIST changes: +MINE15DR4 OP
[2021-06-04] MEDS ORDERED: LACTATED RINGERS 1,000 ML IV ONE (07:41)
[2021-06-04] MEDS ORDERED: LACTATED RINGERS 1,000 ML IV STA (07:43)
[2021-06-04 07:50] VITALS: BP 128/90
--- NOTE | 2021-06-04 08:14 | Progress Note-Pre Operative ---
Pre-Operative Progress Note H&P Reviewed The H&P was reviewed, patient examined and no changes noted. Date Seen by Provider: Jun 04, 2021 Time Seen by Provider: 08:14 Date H&P Reviewed: Jun 04, 2021 Time H&P Reviewed: 08:14 Pre-Operative Diagnosis: hx colon cancer BENTLEY BERMUDEZ DO Jun 04, 2021 08:14
[2021-06-04] MEDS ORDERED: PROPOFOL INJECTION 50 ML IV ONE (09:06)
--- NOTE | 2021-06-04 09:53 | Anesthesia-General Post-Op ---
MAC Patient Condition Mental Status/LOC: Same as Preop Cardiovascular: Satisfactory Nausea/Vomiting: Absent Respiratory: Satisfactory Pain: Controlled Complications: Absent Post Op Complications Complications None Follow Up Care/Instructions Patient Instructions None needed. Anesthesiology Discharge Order Discharge Order Patient is doing well, no complaints, stable vital signs, no apparent adverse anesthesia problems. No complications reported per nursing. DREW DAVALOS CRNA Jun 04, 2021 09:53
--- NOTE | 2021-06-04 09:53 | Progress Note-Post Operative ---
Post-Operative Progess Note Surgeon (s)/Gardening Instructor (s) Surgeon BENTLEY BERMUDEZ DO Gardening Instructor: na Pre-Operative Diagnosis hx colon cancer Post-Operative Diagnosis colon polyps Procedure & Operative Findings Date of Procedure 06/04/21 Procedure Performed/Findings colonoscopy c snare polypectomy x 1 and hot bx polypectomy x 7 Anesthesia Type per boxer operator Estimated Blood Loss Estimated blood loss (mL): none Specimens/Packing Specimens Removed colon polyps BENTLEY BERMUDEZ DO Jun 04, 2021 09:53
--- NOTE | 2021-06-04 09:54 | Discharge Inst-Simple/Standard ---
Discharge Inst-Standard Patient Instructions/Follow Up Plan of Care/Instructions/FU: 2 weeks Nicolasa Activity as Tolerated: Yes Discharge Diet: Regular Diet BENTLEY BERMUDEZ DO Jun 04, 2021 09:54
[2021-06-04 09:55] VITALS: BP 133/61
[2021-06-04 10:00] VITALS: BP 97/48
[2021-06-04 10:05] VITALS: BP 103/57
[2021-06-04 10:07] VITALS: BP 103/57
[2021-06-04 10:20] VITALS: BP 104/77
--- NOTE | 2021-06-04 14:23 | OPERATIVE REPORT ---
DATE OF SERVICE: 06/04/2021 PREOPERATIVE DIAGNOSIS: History of colon cancer. POSTOPERATIVE DIAGNOSIS: Colon polyps. PROCEDURE: Colonoscopy with snare polypectomy x1. Hot biopsy polypectomy x7. SURGEON: Bentley Baldwin DO ANESTHESIA: Per CLINIC CLERK. ESTIMATED BLOOD LOSS: None. COMPLICATIONS: None. INDICATIONS: The patient is a 60-year-old female with history of colon cancer. She understands risks and benefits of procedure and wishes to proceed. Consent was signed in the chart. DESCRIPTION OF PROCEDURE: The patient was taken to the endoscopy suite, placed in left lateral recumbent position. Timeout was performed. Digital rectal exam was performed. Small nodular area on the anorectal junction. No other pathology palpable. Scope was inserted in the rectum and advanced all the way to cecum with no difficulty. Prep was adequate. Scope was then slowly retracted back, cecal polyp present, which hot biopsy polypectomy was performed. Scope was then continuously retracted back. No polyps, masses or ulcerations in the ascending colon. In the transverse colon, a larger polyp was slightly pedunculated which snare polypectomy was performed. Scope was then continuously retracted back for the polyps present within the transverse colon, which hot biopsy polypectomy was performed. Scope was then continuously retracted back through the descending colon without any other pathology. In the sigmoid colon, a small polyp was present, which hot biopsy polypectomy was performed. Scope was then slowly retracted back into the rectum, where it was also retroflexed at the anorectal junction. Small polyp appearing area present, which hot biopsy polypectomy was performed. Scope was returned to its normal position, slowly withdrawn until completely removed, noting no other pathology. The patient tolerated the procedure well without any complications, taken to recovery room in stable condition. RECOMMENDATIONS: The patient will likely need repeat colonoscopy in 3 to 5 years depending upon pathology. Any issues before that be seen at that time. The patient will follow up in our office in 2 weeks. CC: Dr. Breen - requested, unable to deliver. Job ID: [id number] DocumentID: [id number] Dictated Date: 06/04/2021 09:57:01 Can Sterilizer Date: 06/04/2021 14:23:13 Dictated By: BENTLEY BALDWIN DO
== END 2021-06-04 10:28 | disposition home or self-care (01) ==
LOC: ENDO 07:37
PROVIDERS: ATTEND Surgery
DX: Z12.11 Encounter for screening for malignant neoplasm of colon (principal); D12.0 Benign neoplasm of cecum; D12.3 Benign neoplasm of transverse colon; K63.5 Polyp of colon; K62.1 Rectal polyp; Z85.038 Personal history of other malignant neoplasm of large intestine

== ENCOUNTER → 2021-09-20 | Outpatient (CLI) | payer OTHER ==
--- NOTE | 2021-09-20 14:42 | Diagnostic Imaging Report ---
PROCEDURE: CT chest, abdomen, and pelvis without contrast. TECHNIQUE: Multiple contiguous axial images were obtained through the chest, abdomen, and pelvis without the use of intravenous contrast. Auto Exposure Controls were utilized during the CT exam to meet ALARA standards for radiation dose reduction. INDICATION: Renal cancer. CT CHEST: No axillary lymphadenopathy is identified. No mediastinal or hilar lymphadenopathy is detected. No pericardial or pleural fluid is detected. No pulmonary infiltrates, nodules or masses are detected. The bony structures are nonacute. No osteolytic or blastic lesions are seen. CT ABDOMEN AND PELVIS: A right kidney is surgically absent. No recurrent mass is identified in the right renal fossa. Left kidneys unremarkable. No central retroperitoneal or mesenteric lymphadenopathy is seen. Liver, pancreas, spleen and adrenal glands are unremarkable. Aorta is nonaneurysmal. The bowel loops are normal caliber. There are postoperative changes at the rectosigmoid junction. There is moderate stool in the colon. No free fluid or fluid collection is detected. Bladder is decompressed. Uterus appears to be surgically absent. No osteolytic or blastic lesions are detected. IMPRESSION: 1. Status post right nephrectomy. No residual or recurrent neoplasm or evidence of metastatic disease are identified. CT chest, abdomen and pelvis are essentially unremarkable. Dictated by: Dictated on workstation # [id number]
--- NOTE | 2021-09-20 15:20 | Diagnostic Imaging Report ---
INDICATION: History of renal and colon cancer. COMPARISON: 02/16/2013 Tc-99m MDP 27 mCi IV FINDINGS: The skeleton was imaged in anterior and posterior views with the moving gamma camera. There is normal distribution of tracer throughout the skeleton. No abnormal focal area of increased or decreased tracer accumulation is identified. Note is made of absence of uptake in the right renal fossa consistent with previous nephrectomy. IMPRESSION: Normal whole body bone scan. Dictated by: Dictated on workstation # [id number]
== END ==
LOC: CARD 12:00
PROVIDERS: ATTEND Urology
DX: N20.0 Calculus of kidney (principal); Z90.5 Acquired absence of kidney
CPT/HCPCS: 71250; 74176; 78306; A9503

== ENCOUNTER → 2021-10-22 | Outpatient (CLI) | payer OTHER ==
[2021-10-22 11:44] LABS: ALANINE AMINOTRANSFERASE 29 U/L (0-55); ALBUMIN 4.6 GM/DL (3.2-4.5); ALKALINE PHOSPHATASE 122 U/L (40-136); BILIRUBIN,TOTAL 0.6 MG/DL (0.1-1.0); BUN/CREATININE RATIO 16; CALCIUM 10.6 MG/DL (8.5-10.1); CARBON DIOXIDE 26 MMOL/L (21-32); CHLORIDE 106 MMOL/L (98-107); CHOLESTEROL 175 MG/DL (< 200); CREATININE SERUM 0.95 MG/DL (0.60-1.30); GFR ESTIMATED 68; GLUCOSE 97 MG/DL (70-105); SODIUM 141 MMOL/L (135-145); TOTAL PROTEIN 7.2 GM/DL (6.4-8.2); TRIGLYCERIDES 218 MG/DL (<150); VLDL CHOLESTEROL 44 MG/DL (5-40)
[2021-10-22 11:45] LABS: HDL CHOLESTEROL 43 MG/DL (40-60)
== END ==
LOC: LAB 10:25
PROVIDERS: ATTEND Internal Medicine Cardiovascular Disease
DX: E03.9 Hypothyroidism, unspecified (principal); E78.2 Mixed hyperlipidemia
CPT/HCPCS: 36415; 80053; 80061; 84443

== ENCOUNTER → 2021-10-22 | Outpatient (CLI) | payer OTHER ==
[2021-10-22 10:43] LABS: BASOPHILS % (AUTO) 1 % (0-10); EOSINOPHILS # (AUTO) 0.2 10^3/uL (0.0-0.3); EOSINOPHILS % (AUTO) 3 % (0-10); HEMATOCRIT 41 % (35-52); HEMOGLOBIN 14.2 g/dL (11.5-16.0); LYMPHOCYTES # (AUTO) 1.8 10^3/uL (1.0-4.0); LYMPHOCYTES % (AUTO) 31 % (12-44); MEAN CORPUSCULAR HEMOGLOBIN 32 pg (25-34); MEAN CORPUSCULAR HGB CONC 34 g/dL (32-36); MEAN CORPUSCULAR VOLUME 94 fL (80-99); MEAN PLATELET VOLUME 10.2 fL (9.0-12.2); MONOCYTES # (AUTO) 0.4 10^3/uL (0.0-1.0); MONOCYTES % (AUTO) 7 % (0-12); NEUTROPHILS # (AUTO) 3.4 10^3/uL (1.8-7.8); NEUTROPHILS % (AUTO) 58 % (42-75); PLATELET COUNT 220 10^3/uL (130-400); WHITE BLOOD COUNT 5.8 10^3/uL (4.3-11.0)
[2021-10-22 11:10] LABS: ALANINE AMINOTRANSFERASE 29 U/L (0-55); ALBUMIN 4.6 GM/DL (3.2-4.5); ALKALINE PHOSPHATASE 122 U/L (40-136); BILIRUBIN,TOTAL 0.6 MG/DL (0.1-1.0); BUN/CREATININE RATIO 16; CALCIUM 10.6 MG/DL (8.5-10.1); CARBON DIOXIDE 26 MMOL/L (21-32); CHLORIDE 106 MMOL/L (98-107); CHOLESTEROL 175 MG/DL (< 200); CREATININE SERUM 0.95 MG/DL (0.60-1.30); GFR ESTIMATED 68; GLUCOSE 97 MG/DL (70-105); HDL CHOLESTEROL 43 MG/DL (40-60); SODIUM 141 MMOL/L (135-145); TOTAL PROTEIN 7.2 GM/DL (6.4-8.2); TRIGLYCERIDES 218 MG/DL (<150); VLDL CHOLESTEROL 44 MG/DL (5-40)
[2021-10-22 11:25] LABS: FREE T4 (FREE THYROXINE) 1.05 NG/DL (0.70-1.48)
== END ==
LOC: LAB 10:24
PROVIDERS: ATTEND Nurse Practitioner Family
DX: I10 Essential (primary) hypertension (principal); E78.2 Mixed hyperlipidemia; E03.9 Hypothyroidism, unspecified
CPT/HCPCS: 36415; 80053; 80061; 84439; 84443; 85025

== ENCOUNTER → 2021-10-29 | Outpatient (CLI) | payer OTHER | LOC: LAB 10:55 | PROVIDERS: ATTEND Nurse Practitioner Family | DX: E83.52 Hypercalcemia (principal) | CPT/HCPCS: 36415; 82306 ==

== ENCOUNTER → 2022-02-06 | Outpatient (CLI) | payer OTHER ==
[~2022-02-06] VITALS: Ht 157.5 cm; Wt 60.0 kg
[~2022-02-06] MED LIST changes: +FAMOTIDINE 20MG/2ML IV (PEPCID) IVP ONE; +ONDANSETRON 4 MG/2 ML (SDV) Z0FRAN IV ONE
[2022-02-06] MEDS: NS IV 1000 ML 1,000 ML IV SCH ×2 (11:32→12:38)
[2022-02-06 11:43] VITALS: BP 79/63
== END ==
LOC: SDC 11:12
PROVIDERS: ATTEND Family Medicine
DX: N39.0 Urinary tract infection, site not specified (principal); E86.0 Dehydration
CPT/HCPCS: 96360; 96361; 96374; 96375

== ENCOUNTER → 2022-06-17 | Outpatient (CLI) | payer OTHER ==
[~2022-06-17] MED LIST changes: -FAMOTIDINE 20MG/2ML IV (PEPCID) IVP ONE; -ONDANSETRON 4 MG/2 ML (SDV) Z0FRAN IV ONE
== END ==
LOC: CARD 08:49
PROVIDERS: ATTEND Physician Assistant
DX: I34.0 Nonrheumatic mitral (valve) insufficiency (principal); I11.9 Hypertensive heart disease without heart failure; I25.10 Atherosclerotic heart disease of native coronary artery without angina pectoris
CPT/HCPCS: 93306